=== PATIENT | female | born 1960 | race Caucasian/White ===

== ENCOUNTER 2016-11-05 06:32 | Day surgery (SDC) | payer BC ==
[~2016-11-05 06:32] MED LIST: FENTANYL 250 MCG/5 ML AMP IV PRN; IV START KIT ONE; LACTATED RINGERS 1,000 ML IV SCH; LACTATED RINGERS 1,000 ML ONE; LIDOCAINE Viscous 2% 15 ML UDCUP PO PRN; MIDAZOLAM HCL 5 MG/5 ML VIAL IV PRN
[2016-11-05] MEDS ORDERED: FENTANYL 100 MCG/2 ML VIAL ONE (07:23)
[2016-11-05] MEDS ORDERED: MIDAZOLAM HCL 5 MG/5 ML VIAL ONE (07:23)
[2016-11-05] MEDS ORDERED: LIDOCAINE Viscous 2% 15 ML UDCUP ONE (07:24)
[2016-11-05 14:35] LABS: HELICOBACTER PYLORII DETECTION NEGATIVE (NEGATIVE)
--- NOTE | 2016-11-10 15:38 | SURGPATH ---
[employer] [address] [place] [id number] Patient Name: FITZ ACUNA MR#: [id number] : 1960 Gender: F Specimen #: [id number] Collected: 11/05/2016 Received: 11/08/2016 Reported: 11/10/2016 Submitting Phys: DEYANIRA OCASIO Copy To Phys: [facility] ANTHONY MELGOZA Clinical History / Pre-Operative Diagnosis: ESOPHAGEAL STRICTURE Specimen Source / Surgical Procedure Performed: ANTRAL BIOPSY Interpretation: STOMACH, ANTRUM, BIOPSY: - MILD CHRONIC ANTRAL GASTRITIS WITHOUT ACTIVITY - NO HELICOBACTER ORGANISMS SEEN ON IMMUNOSTAIN Electronically Signed Out Crystal Giron M.D. Gross Description: The specimen is received in a formalin filled container labeled with the patient's name and "antral biopsy". Two pearosn biopsies are 0.4 and 0.5 cm. Totally embedded in one cassette. [place] Microscopic Description: Sections show gastric antral mucosa with overall intact architecture. Mild chronic inflammation is seen without active inflammation. No Helicobacter organisms are seen on immunostain. The controls stain appropriately. No dysplasia or malignancy is seen. (Analyte-specific reagents (ASR) are used in many laboratory tests necessary for standard medical care and generally do not require FDA approval. This test was developed and its performance characteristics determined by [employer] [facility] [employer]. It has not been cleared or approved by the [place].S. Food and Drug Administration. [facility] is certified under the Clinical Laboratory Improvement Amendments of 1988 as qualified to perform high complexity clinical laboratory testing. All controls stain as expected.) 1: 86681, 80119 K29.30
== END 2016-11-05 08:16 | disposition home or self-care (01) ==
LOC: SDC 06:32
PROVIDERS: ATTEND Internal Medicine Gastroenterology
PROC: 0D748ZZ Dilation of Esophagogastric Junction, Via Natural or Artificial Opening Endoscopic (ICD-10-PCS; principal; 2016-11-05)
PROC: 0DB68ZX Excision of Stomach, Via Natural or Artificial Opening Endoscopic, Diagnostic (ICD-10-PCS; 2016-11-05)
DX: K22.2 Esophageal obstruction (principal); K29.50 Unspecified chronic gastritis without bleeding; K29.80 Duodenitis without bleeding; I10 Essential (primary) hypertension; E78.5 Hyperlipidemia, unspecified; Z88.3 Allergy status to other anti-infective agents; Z88.2 Allergy status to sulfonamides
CPT/HCPCS: 43249; 43239; 87081; J3010; J2250; A9270; J7120